=== PATIENT | female | born 1990 | race Caucasian/White ===

== ENCOUNTER 2017-09-10 07:52 | Emergency (ER) | payer OTHER ==
[~2017-09-10] VITALS: Ht 165.1 cm; Wt 104.3 kg
[~2017-09-10 07:52] MED LIST: NOHOMEMEDICATIONS; PROAIR HFA8.5 GM INH; TUSSIONEX PENN473 ML PO
[2017-09-10 07:56] VITALS: BP 142/92
[2017-09-10] MEDS ORDERED: NORCO 5-325 TA1 EACH PO (08:08)
[2017-09-10] MEDS ORDERED: PENICILLIN VK500 M1 PO (08:08)
== END 2017-09-10 08:15 | disposition home or self-care (01) ==
LOC: ER 07:52
DX: K02.9 Dental caries, unspecified (principal); R59.0 Localized enlarged lymph nodes; R51 Headache; F17.210 Nicotine dependence, cigarettes, uncomplicated; Z88.6 Allergy status to analgesic agent

== ENCOUNTER 2020-05-04 03:12 | Emergency (ER) | payer OTHER ==
[~2020-05-04] VITALS: Ht 165.1 cm; Wt 107.0 kg
[~2020-05-04 03:12] MED LIST changes: +NORCO 5-325 TA1 EACH PO; +PENICILLIN VK500 M1 PO
[2020-05-04 03:18] VITALS: BP 139/97
[2020-05-04] MEDS ORDERED: PREDNISONE 20 M20 M1 PO (04:07)
--- NOTE | 2020-05-04 07:08 | EKG ---
[address] [address] ELECTROCARDIOGRAM REPORT Name: VALENTINO RAMOS Room #: [id number] Admission: 05/04/20 Attend Phys: Discharge: 05/04/20 Date of : 88 Report #: [id number] [facility] ED Test Date: 2020-05-04 Test Time: 03:35:51 Pat Name: VALENTINO RAMOS Department: Room: Gender: F [employer] Worker: [email or web address] : 1990 Requested By: Sushant Contreras Order Number: [id number] MD: Jairon Louis Measurements Intervals [place] Rate: 98 P: 46 WI: 167 QRS: 10 QRSD: 81 T: 35 QT: 348 QTc: 445 Interpretive Statements Sinus rhythm Compared to ECG 06/22/2016 23:03:17 Sinus tachycardia no longer present Electronically Signed On 05-04-2020 7:08:44 [employer] ARCHITECT by Jairon Louis [email or web address] <ELECTRONICALLY SIGNED> By: Jairon Louis MD, [facility] 05/04/20 [id number] Jairon Louis MD, FACC /EPI
== END 2020-05-04 04:13 | disposition home or self-care (01) ==
LOC: ER 03:12
DX: J20.9 Acute bronchitis, unspecified (principal); J45.909 Unspecified asthma, uncomplicated; F17.210 Nicotine dependence, cigarettes, uncomplicated; Z79.899 Other long term (current) drug therapy; Z88.8 Allergy status to other drugs, medicaments and biological substances

== ENCOUNTER 2020-05-18 07:18 | Emergency (ER) | payer OTHER ==
[~2020-05-18] VITALS: Ht 165.1 cm; Wt 106.6 kg
[~2020-05-18 07:18] MED LIST changes: +PREDNISONE 20 M20 M1 PO
[2020-05-18 07:39] LABS: URINE BILIRUBIN NEGATIVE (Negative); URINE BLOOD NEGATIVE (Negative); URINE CLARITY CLEAR; URINE COLOR YELLOW; URINE GLUCOSE-RANDOM* 3+ (Negative); URINE KETONES TRACE (Negative); URINE LEUKOCYTES-REFLEX NEGATIVE (Negative); URINE NITRITE-REFLEX NEGATIVE (Negative); URINE PROTEIN (DIPSTICK) NEGATIVE (Negative); URINE UROBILINOGEN 0.2 E.U./dl (0.2-1.0)
[2020-05-18 07:55] LABS: HEMATOCRIT 41.8 % (37.0-47.0); MCH 26.5 pg (26.0-34.0); MCHC 33.4 g/dL (28.0-37.0); MCV 79.4 fL (80.0-100.0); PLATELET COUNT 269 thou/uL (150-400); RBC 5.27 mil/uL (4.20-5.00); RDW 14.3 % (10.5-14.5); WBC 7.3 thou/uL (4.0-11.0)
[2020-05-18 08:20] LABS: CALCIUM 9.4 mg/dL (8.5-10.1); POTASSIUM 3.7 mmol/L (3.5-5.1)
[2020-05-18] MEDS ORDERED: ZPAK PO (08:28)
[2020-05-18] MEDS ORDERED: PROAIR HFA8.5 GM INH (08:33)
[2020-05-18 09:04] LABS: ABSOLUTE NEUTROPHILS 3.9 thou/uL (1.4-8.2)
[2020-05-18 09:05] LABS: PLATELET ESTIMATE NORMAL
[2020-05-18 09:07] VITALS: BP 133/94
== END 2020-05-18 09:12 | disposition home or self-care (01) ==
LOC: ER 07:18
PROVIDERS: Emergency Medicine
DX: J18.9 Pneumonia, unspecified organism (principal); F17.210 Nicotine dependence, cigarettes, uncomplicated; Z88.8 Allergy status to other drugs, medicaments and biological substances